=== PATIENT | female | born 1985 | race Caucasian/White ===

== ENCOUNTER 2017-11-14 10:32 | Emergency (ER) | payer OTHER ==
[2017-11-14] MEDS: IBUPROFEN 600 MG TAB PO (11:17)
[2017-11-14] MEDS: ONDANSETRON (ODT) 4 MG TAB ODT (11:18)
[2017-11-14] MEDS: DIAZEPAM 5 MG TAB PO (11:18)
== END 2017-11-14 12:58 | disposition home or self-care (01) ==
LOC: FTE 12:58
DX: M25.552 Pain in left hip (principal); M25.562 Pain in left knee; R07.9 Chest pain, unspecified
CPT/HCPCS: 71045; 73510; 73562; 81025; 99284-25